=== PATIENT | female | born 2000 | race Caucasian/White ===

== ENCOUNTER 2019-10-05 01:40 | Emergency (ER) | payer OTHER ==
[~2019-10-05] VITALS: Ht 182.9 cm; Wt 86.2 kg
[2019-10-05 01:40] VITALS: BP 139/87
--- NOTE | 2019-10-05 01:40 | NUR ---
TO BED # 07 AMBULATORY
--- NOTE | 2019-10-05 01:40 | NUR ---
PT ARRIVED TO ED C/O STOMACH PAIN X 1 HR AGO. RATES PAIN 4/10. DESCRIBES IT BURNING FEELING. PT HAS EPIGASTRIC PAIN. BS ACTIVE, SOFT, FLAT, NONTENDER TO TOUCH. VSS. PT STATES SHE FORCE HERSELF TO VOMIT TO FEEL BETTER AND SAID IT WAS BILE. VSS. NKA. PMH: NONE.
[2019-10-05] MEDS: ALUMINUM HYD/MAG/SIMETHICONE 30 ML UDC PO ONE (02:28)
[2019-10-05] MEDS: DICYCLOMINE HCL LIQUID 10 MG/5 ML UDC PO ONE (02:28)
[2019-10-05] MEDS: LIDOCAINE VISCOUS 2% 20 ML UDC PO ONE (02:29)
[2019-10-05] MEDS: PANTOPRAZOLE 40 MG TABEC PO ONE (02:52)
--- NOTE | 2019-10-05 02:55 | NUR ---
MD DELACRUZ AT BEDSIDE TO [facility] PT.
[2019-10-05 03:00] VITALS: BP 139/87
--- NOTE | 2019-10-05 03:00 | NUR ---
Patient discharged with v/s stable. Written and verbal after care instructions given and explained. Patient alert, oriented and verbalized understanding of instructions. Ambulatory with steady gait. All questions addressed prior to discharge. ID band removed. Patient advised to follow up with PMD. Rx of PROTONIX given. Patient educated on indication of medication including possible reaction and side effects. Opportunity to ask questions provided and answered.
== END 2019-10-05 03:00 | disposition home or self-care (01) ==
LOC: MED 01:40
DX: K21.9 Gastro-esophageal reflux disease without esophagitis (principal); R03.0 Elevated blood-pressure reading, without diagnosis of hypertension
CPT/HCPCS: 81002; 81025; 99284

== ENCOUNTER 2019-10-24 11:44 | Emergency (ER) | payer MEDICAID, OTHER ==
[~2019-10-24] VITALS: Ht 180.3 cm; Wt 83.5 kg
[2019-10-24 11:59] VITALS: BP 130/56
--- NOTE | 2019-10-24 12:03 | NUR ---
URINE CUP HANDED TO PT FOR SAMPLE
--- NOTE | 2019-10-24 12:32 | NUR ---
Patient ambulated to bed 2. RN evaluating patient at bedside.
--- NOTE | 2019-10-24 12:35 | NUR ---
19/F presents to ED with complaints of decreased appetite since [place], approximately 1 week before. Patient states she hasnt been feeling hungry, also c/o nausea and vomiting on and off. States she vomitted this am. No active vomiting noted. Patient also c/o lower back pain. Pt states "I'm having pain when I try to stand straight." Pt denies any injury.
[2019-10-24] MEDS ORDERED: ONDANSETRON 4 MG ODT PO ONE (13:55)
--- NOTE | 2019-10-24 14:02 | NUR ---
MEDS GIVEN.DR WILKINS AT BEDSIDE.
[2019-10-24 14:32] VITALS: BP 127/47
== END 2019-10-24 14:32 | disposition home or self-care (01) ==
LOC: MED 11:44
DX: K52.9 Noninfective gastroenteritis and colitis, unspecified (principal); M54.5 Low back pain
CPT/HCPCS: 81002; 81025; 99283; Q0162